=== PATIENT | male | born 1940 | race Asian ===

== ENCOUNTER 2024-06-05 15:00 | Outpatient (REF) | payer MEDICARE, SELFPAY ==
--- NOTE | 2024-06-06 09:08 | MHC.AU.HA1 ---
Hearing Aid Evaluation Date of Visit: 06/05/24 Historical Information: Description of Hearing: Right Ear: Mild sloping to severe sensorineural hearing loss; Left Ear: Mild sloping to severe sensorineural hearing loss Summary: Accompanied by daughter, Lakesha. Discussed possible third-constitution party administered benefit through [employer] insurance. Rosa and Lakesha opted to pursue hearing aids here, knowing it will be self-pay. Discussed pros and cons of different styles and technology levels in detail. Planning to trial rechargeable standard BTE. However, after discussion about importance of daily, consistent use and acclimatization period, Rosa reported he needs to think about it more and is not ready to pursue amplification. 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 He goes to restaurants occasionally but rarely socializes otherwise. Discussed impact of hearing loss on other cognitive processes and importance of auditory stimulation just by hearing sounds around the house even if not engaged in conversations. After lengthy consultation discussion, Rosa did not want to pursue hearing aids. Discussed PocketTalker as alternative option, christina'michaelle in office. Lakesha reported they will consider a PocketTalker and also now plan to look into insurance benefit. If they ultimately decide to pursue hearing aids here, they will reschedule the Hearing Aid Consultation to confirm details and take earmold impressions. Hearing Aid Prescription: Based on the individual?s shared listening needs, communication environments, dexterity, desire for connectivity, and personal preferences, the following prescription for amplification has been made: Right ear: Make, Model, Color: Phonak Zonia L30-SC Battery Size: Rechargeable Type of Earmold/Dome/CShell/SlimTip: MicroSonic M45 Half Shell Left ear: Left ear prescription to be same as Right Hearing Aid above: Make, Model, Color: Phonak Zonia L30-SC Battery Size: Rechargeable Type of Earmold/Dome/CShell/SlimTip: MicroSonic M45 Half Shell Accessories/Assistive Technology: Burlap Man Plan of Care: Patient is not interested in pursuing new amplification at this time. Action Taken/Action Needed: RTC PRN Primary Diagnosis: H90.3 Bilateral Sensorineural Hearing Loss Signature: Provider: Priyank Johnson, [facility]
== END 2024-06-05 15:01 | disposition home or self-care (01) ==
LOC: HO.SH 15:00
PROVIDERS: Visit Provider Family Medicine
DX: Z01.118 Encounter for examination of ears and hearing with other abnormal findings (principal); H90.3 Sensorineural hearing loss, bilateral
CPT/HCPCS: 92557

== ENCOUNTER 2024-06-24 09:49 | Outpatient (AMB) | payer MEDICARE, SELFPAY ==
[2024-06-24 09:51] VITALS: BP 110/64; PULSE 67; BMI 19.8
--- NOTE | 2024-06-24 09:51 | A.OFFVIS_ITS ---
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/ [place] Intake Note: New patient with Medtronic pacer moved from [place] feeling good Ash Worker Required: No Career Specialist: Career Specialist Present Accompanied by: Daughter Allergies olmesartan [From Benicar] Allergy (Severe, Verified 06/24/24 09:58) Vomiting Medication List - Last Reconciled 06/24/24 by Sundeep Girard MD amlodipine 5 mg PO DAILY apixaban (Eliquis) 2.5 mg PO BID atorvastatin 20 mg PO BEDTIME doxazosin 1 mg PO DAILY metformin 500 mg PO BID HPI Comments Details: Thank you for referring Rosa in cardiology consultation for management of his atrial fibrillation as well as pacemaker. He is accompanied by his daughter. Patient is a pleasant 83-year-old male says was diagnose with atrial fibrillation about 10 years ago. Initially started on warfarin but subsequently has stroke and was switch to Xarelto however this became very expensive and he had to go back to warfarin therapy again. However recently moved to [facility] and was started on Eliquis therapy which is tolerating well after change in his insurance. He said it is more affordable at this point time he has been taking. No side effects related to it. He said he has never had attempted cardioversion for his atrial fibrillation has remained in atrial fibrillation for many years. Underwent a pacemaker placement about 4 or 5 years ago for what appears to be episode of syncope with very low heart rate at that point time. Since then he has had no further syncopal episodes. He takes all his medications. Denies any symptoms exertional chest pain or shortness of breath. Denies any orthopnea, PND, leg edema. Denies any palpitations or chest pain. Denies any bleeding issues or neurologic events. [facility] Medical History HTN (hypertension) Cardiac pacemaker in situ Stroke Chronic atrial fibrillation Surgical History Hx of cardiac pacemaker Family History Father Diabetes Mother Diabetes Social History Patient Tobacco Use Status: Former Tobacco user Review of Systems Const Denies chills, Denies daytime sleepiness, Denies fatigue, Denies fever(s), Denies frequent falls, Denies poor appetite, Denies snoring, Denies stops breathing during sleep, Denies weakness, Denies weight gain and Denies weight loss Eyes Denies loss of vision ENT Denies dizziness and Denies hearing loss Card Denies chest pain, Denies claudication, Denies leg edema, Denies lightheadedness, Denies palpitations, Denies dyspnea, Denies dyspnea on exertion and Denies orthopnea Resp Denies cough, Denies excessive phlegm production, Denies dyspnea, Denies dyspnea on exertion, Denies snoring and Denies wheezing GI Denies abdominal pain, Denies hematochezia, Denies change in bowel habits, Denies nausea and Denies vomiting Denies dysuria and Denies urinary frequency Musc Denies arthralgias, Denies muscle weakness, Denies numbness and Denies other (frequent falls) Skin/Breast Denies nail changes and Denies rash Neuro Denies Abnormal speech present, Denies dizziness, Denies frequent falls, Denies loss of vision, Denies memory loss, Denies numbness and Denies weakness Psych Denies depression and Denies memory loss Endo Denies fatigue and Denies palpitations Misael/Lymph Reports easy bruising and Reports other (anemia) Aller/Immun Denies wheezing Physical Exam Vital Signs: Last Vital Signs Pulse 67 06/24/24 09:51 BP 110/64 06/24/24 09:51 BMI result Body Mass Index 19.8 Const General: cooperative, comfortable, no acute distress, alert and awake Nutritional Appearance: thin Orientation/consciousness: patient oriented x3 Limitations: no limitations HEENT Head: Yes normocephalic and Yes atraumatic Neck Neck: Yes trachea midline, Yes supple and Yes no JVD Resp Effort & Inspection: normal respiratory effort Auscultation: clear to auscultation bilaterally Cardio Jugular venous distension: no JVD Palpation: normal PMI Rate: regular rate Rhythm: regular rhythm Heart sounds: S1 normal heart sound present, S2 normal heart sound present, no click, no gallops, no murmurs and no rubs GI Auscultation: normal bowel sounds Skin General skin exam: no rashes or lesions noted Neuro General: patient oriented x3 and no focal motor deficits Speech: No Abnormal speech present Extrem General: Yes no clubbing, cyanosis or edema Office Procedures Cardiac Device Check Cardiac Device Check Details: Medtronic single-chamber pacemaker in place programmed in VVIR at 60 beats per minute. Ventricular pacing 100% of the time. Ventricular sensing is adequate. Ventricular pacing thresholds adequate. Battery life is at about 10 years 13898-[id number] Cardiac Device Check, leadless/single lead pacemaker Procedure code (CPT) selection complete EKG Details: EKG shows ventricular paced rhythm with underlying atrial fibrillation. [id number], Complete Assessment & Plan Assessment & Plan (1) Chronic atrial fibrillation: Code(s): I48.20 - Chronic atrial fibrillation, unspecified Category: Medical Plan: Chronic atrial fibrillation for about 10 years. Patient was asking whether he could have medicines to regularize his rhythm. I said that unlikely given that he has been in AFib for 10 years to pursue rhythm control approach as there is significant structural changes over time with persistent/chronic atrial fibrillation. Also he is currently not having any symptoms or signs of cardiac decompensation and utility of pursuing rhythm control approach and clinically benefits are low. This was discussed and she understands. Advised to continue low-dose Eliquis therapy at 2.5 mg b.i.d. given his weight and age. Continue monitor renal function every 3 months. Will obtain echocardiogram to assess for LV systolic function given constant RV pacing as well as biatrial chamber size and secondary valvular abnormalities. (2) Cardiac pacemaker in situ: Comment: Medtronic single-chamber pacemaker for bradycardia and possible syncope, 4 years ago Code(s): Z95.0 - Presence of cardiac pacemaker Category: Medical Plan: Cardiac pacemaker in-situ, working well. Single-chamber pacemaker patient ventricularly pacer dependent. Underlying rate at about 45 beats per minute. No symptoms related to it. Will follow remotely every 3 months. Follow up in the clinic in 6 months time. (3) HTN (hypertension): Code(s): I10 - Essential (primary) hypertension Category: Medical Plan: Hypertension which is currently well optimized advised to monitor blood pressure at home maintain a log. Goal blood pressure less than 130/84. Low-salt diet was discussed. Continue current therapy. Importance of good blood pressure control was discussed. Follow up in the clinic in 6 months time. Will obtain old records. Thank you for allowing me to partake in his care Orders: Orders CA echo transthoracic complete Today I48.20 - Chronic atrial fibrillation, unspecified Coding Level of Care Code New Pt Level 4 (80227) Diagnoses Chronic atrial fibrillation I48.20 Cardiac pacemaker in situ Z95.0 HTN (hypertension) I10 CPT Codes Cardiac Device Check - Cardiac Device 1: 46168-[id number] Cardiac Device Check, leadless/single lead pacemaker ([id number]) EKG - CPT: 53252-Wvnivmmcubwjvpyap, Complete ([id number])
== END 2024-06-24 10:35 | disposition home or self-care (01) ==
PROVIDERS: PCP Family Medicine; Visit Provider Internal Medicine Cardiovascular Disease
DX: I48.20 Chronic atrial fibrillation, unspecified (principal); Z95.0 Presence of cardiac pacemaker; I10 Essential (primary) hypertension; R94.31 Abnormal electrocardiogram [ECG] [EKG]
CPT/HCPCS: 93010; 93279; 99204

== ENCOUNTER → 2024-06-24 09:49 | Outpatient (BNVA) | payer MEDICARE, SELFPAY | PROVIDERS: Visit Provider Internal Medicine Cardiovascular Disease | DX: Z45.018 Encounter for adjustment and management of other part of cardiac pacemaker (principal); I48.20 Chronic atrial fibrillation, unspecified; I10 Essential (primary) hypertension | CPT/HCPCS: 93005; 99202 ==

== ENCOUNTER → 2024-07-07 23:59 | Outpatient (BNV) | payer MEDICARE, SELFPAY ==
--- NOTE | 2024-07-08 12:37 | MHC.OFFVIS ---
Intake Visit Reasons: Remote device check- Medtronic Allergies olmesartan [From Benicar] Allergy (Severe, Verified 06/24/24 09:58) Vomiting PFSH Medical History HTN (hypertension) Cardiac pacemaker in situ Stroke Chronic atrial fibrillation Surgical History Hx of cardiac pacemaker Family History Father Diabetes Mother Diabetes Social History Patient Tobacco Use Status: Former Tobacco user Office Procedures Cardiac Device Check Cardiac Device Check Details: Remote pacemaker report generated 07/07/2024. Pacemaker function is adequate [id number] Cardiac Device Interrogation, pacemaker Procedure code (CPT) selection complete Assessment & Plan Assessment & Plan (1) Cardiac pacemaker in situ: Comment: Medtronic single-chamber pacemaker for bradycardia and possible syncope, 4 years ago Code(s): Z95.0 - Presence of cardiac pacemaker Category: Medical Plan: See above Coding Level of Care Code Procedure Only Diagnoses Cardiac pacemaker in situ Z95.0 CPT Codes Cardiac Device Check - Cardiac Device 12: [id number] Cardiac Device Interrogation, pacemaker ([id number])
== END ==
PROVIDERS: PCP Family Medicine; Visit Provider Internal Medicine Cardiovascular Disease
DX: R00.1 Bradycardia, unspecified (principal); Z95.0 Presence of cardiac pacemaker
CPT/HCPCS: 93294

== ENCOUNTER 2024-07-22 11:10 | Outpatient (REF) | payer MEDICARE, SELFPAY ==
[2024-07-22 13:20] LABS: MANUAL DIFF FLAG NO
[2024-07-22 13:29] LABS: Basophils Percent Auto 0.3 % (0-2); Eosinophils Absolute Auto 0.1 X10*3/uL (0.0-0.4); Eosinophils Percent Auto 1.2 % (0-4); Hematocrit 46.7 % (42.0-52.0); Hemoglobin 15.5 g/dl (14.0-18.0); Imm Gran Abs Auto 0.02 X10*3/uL (0.00-0.03); Imm Gran Pct Auto 0.3 % (0.0-0.4); Lymphocytes Absolute Auto 1.4 X10*3/uL (1.2-4.9); Lymphocytes Percent Auto 23.8 % (20-40); Mean Corpuscular HGB Conc 33.2 g/dl (31.0-36.0); Mean Corpuscular Hemoglobin 32.4 pg (27.0-33.0); Mean Corpuscular Volume 97.7 fL (80.0-98.0); Mean Platelet Volume 9.5 fL (9.4-12.4); Monocytes Absolute Auto 0.5 X10*3/uL (0.1-1.2); Monocytes Percent Auto 8.5 % (2-11); Neutrophils Absolute Auto 3.9 x10*3/uL (2.0-8.3); Neutrophils Percent Auto 65.9 % (45-73); Platelet Count 210 X10*3/uL (160-400); Red Blood Count 4.78 X10*6/uL (4.60-5.80); Red Cell Distribution Width 13.7 % (11.0-16.0); White Blood Count 5.9 X10*3/uL (4.8-10.8)
[2024-07-22 13:50] LABS: Alanine Aminotransferase 16 U/L (0-40); Albumin Level 4.1 g/dL (3.5-5.0); Alkaline Phosphatase 48 U/L (39-117); Anion Gap 13 (12-20); Aspartate Amino Transferase 15 U/L (5-37); Bilirubin Total 1.2 mg/dL (0.0-1.0); Blood Urea Nitrogen 27 mg/dL (9-16); Calcium 9.6 mg/dL (8.4-10.2); Carbon Dioxide 27 mmol/L (22-29); Chloride 105 mmol/L (96-108); Estimated Glomerular Filt Rate > 60; Glucose Random 126 mg/dL (60-115); Potassium 4.3 mmol/L (3.3-5.1); Sodium 141 mmol/L (135-145); Total Protein 7.5 g/dL (6.5-8.0); Uric Acid 7.9 mg/dL (3.4-7.0)
[2024-07-22 13:59] LABS: Creatinine Urine 155.97 mg/dL; Microalbum/Creatinine Ratio Ur 19.2 ug/mg cr (<30)
== END 2024-07-22 11:11 | disposition home or self-care (01) ==
LOC: HO.HHCL 11:10
PROVIDERS: Visit Provider Family Medicine
DX: M10.9 Gout, unspecified (principal); E11.59 Type 2 diabetes mellitus with other circulatory complications; R63.6 Underweight
CPT/HCPCS: 36415; 80053; 82043; 82570; 84550; 85025

== ENCOUNTER → 2024-08-05 07:56 | Outpatient (REF) | payer MEDICARE, SELFPAY ==
--- NOTE | 2024-08-05 07:59 | CA_ITS ---
Transthoracic Echocardiogram Patient (Last, First, Middle): Rosa Rodríguez, Gender: Male Date of : 1940 Age: 83 Procedure Date: 08/05/2024 Procedure Type: Transthoracic Echocardiogram Location: OP Height: 172.72 cm Weight: 54.43 kg BSA: 1.65 m2 Heart Rate: bpm BP: 140 / 70 mmHg Leasing Representative: TO Referring MD: Sundeep Girard MD Symptoms: I48.20 - Chronic atrial fibrillation, unspecified Study Quality: Adequate ECG Rhythm: Atrial Fibrillation Conclusions: - The left ventricular systolic function is normal. The calculated ejection fraction is 60% by biplane method. - Severe biatrial enlargement. - By color Doppler, [id number] interatrial shunting suggestive of atrial septal defect. - There is mild aortic valve regurgitation. - There is mild tricuspid valve regurgitation. - There is mild dilatation of the ascending aorta measuring 4.20 cm. Findings Left Ventricle Normal left ventricular cavity size. The left ventricular systolic function is normal. The calculated ejection fraction is 60% by biplane method. There is no evidence of regional wall motion abnormalities. Diastolic function is indeterminate on the basis of available data. There is mild septal and mild basal asymmetric hypertrophy. Right Ventricle Normal right ventricular cavity size and systolic function. Atria Severe biatrial enlargement. By color Doppler, [id number] interatrial shunting suggestive of atrial septal defect. Aortic Valve There is a normal trileaflet aortic valve. There is mild calcification of the aortic valve. There is mild aortic valve regurgitation. Mitral Valve There is mild mitral annular calcification. There is trace mitral valve regurgitation. There is no mitral valve stenosis. Pulmonic Valve The pulmonic valve is likely normal. Tricuspid Valve Normal tricuspid valve structure. There is mild tricuspid valve regurgitation. There is no evidence of pulmonary hypertension. Great Vessels There is mild dilatation of the ascending aorta measuring 4.20 cm. Venous The inferior vena cava is normal in size and collapses greater than 50% with inspiration. Pericardium/Pleural There is no evidence of pericardial effusion. Prior Study Comparison No prior study available for comparison. Measurements 2D Linear Measurements IVSd: 1.02 0.6-0.9/0.6-1.0 cm LVIDd: 4.53 3.9-5.3/4.2-5.9 cm LVIDd Index: 2.75 2.4-3.2/2.2-3.1 cm/m2 LVIDs: 2.94 2.0-3.6 cm LVPWd: 0.84 0.7-1.1 cm LA Diam: 3.40 2.7-3.8/3.0-4.0 cm LAIDs Index: 2.06 1.5-2.3 cm/m2 LV Mass: 174.93 67-162/88-224 g LV Mass Index: 106.02 43-95/49-115 g/m2 LVOT Diam: 2.00 3.0+(-)1.3 cm 2D Systolic Function EF 4C: 62.00 >55% EF 2C: 57.40 >55% EF BiP: 59.70 >55% Mitral Valve MV Pk E: 1.10 MV Decel Time: 255.00 E'Lateral: 10.10 E'Medial: 7.29 E/E' Med: 15.10 E/E' Lat: 10.90 PHT: 75.00 MVA PHT: 2.93 Decel [place]: 4.31 Aortic Valve AoV Pk Christian: 1.76 AoV Mn Christian: 1.16 AoV VTI: 0.37 AoV Pk Grad: 12.00 Aov Mn Grad: 6.00 DUNG Cont.VTI: 2.40 AI Pk Christian: 3.64 AI [place]: 2.01 LVOT LVOT Pk Christian: 1.29 LVOT Mn Christian: 0.86 LVOT VTI: 0.28 LVOT Pk Grad: 7.00 LVOT Mn Grad: 3.00 LVOT Diam: 2.00 LVOT Area: 3.14 Diastolic Function MV Pk E: 1.10 E'Medial: 7.29 E/E' Med: 15.10 E' Laterial: 10.10 E/E' Lat: 10.90 Right Ventricle TAPSE (mm): 17.70 TVS' Christian: 11.60 Tricuspid Valve TR Pk Christian: 2.52 TR Pk Grad: 25.00 RA Press: 3.00 RVSP: 28.00 Great Vessels Aorta Sinus of Valsalva: 3.85 2.0-3.5 cm Ao Asc: 4.20 2.1-3.4 cm Updated in Other Vendor System with Status of Final Jesse Thomason MD electronically signed on 08/06/2024 8:24:56 AM with status of Final
== END ==
LOC: HO.CARD 07:56
PROVIDERS: PCP Family Medicine; Visit Provider Internal Medicine Cardiovascular Disease
DX: I48.20 Chronic atrial fibrillation, unspecified (principal)
CPT/HCPCS: 93306

== ENCOUNTER → 2024-08-05 07:59 | Outpatient (BNV) | payer MEDICARE, SELFPAY | PROVIDERS: PCP Family Medicine; Visit Provider Internal Medicine | DX: Q21.10 Atrial septal defect, unspecified (principal); I35.1 Nonrheumatic aortic (valve) insufficiency; I51.7 Cardiomegaly; I42.2 Other hypertrophic cardiomyopathy | CPT/HCPCS: 93303; 93320; 93325 ==

== ENCOUNTER → 2024-11-20 23:59 | Outpatient (BNV) | payer MEDICARE, SELFPAY ==
--- NOTE | 2024-11-24 16:40 | MHC.OFFVIS ---
Intake Visit Reasons: Remote device check- Medtronic Allergies olmesartan [From Benicar] Allergy (Severe, Verified 06/24/24 09:58) Vomiting PFSH Medical History HTN (hypertension) Cardiac pacemaker in situ Stroke Chronic atrial fibrillation Surgical History Hx of cardiac pacemaker Family History Father Diabetes Mother Diabetes Social History Patient Tobacco Use Status: Former Tobacco user Office Procedures Cardiac Device Check Cardiac Device Check Details: Remote pacemaker report generated 11/20/2024. 100% ventricular pacing noted. Pacemaker function is adequate [id number] Cardiac Device Interrogation, pacemaker Procedure code (CPT) selection complete Assessment & Plan Assessment & Plan (1) Cardiac pacemaker in situ: Comment: Medtronic single-chamber pacemaker for bradycardia and possible syncope, 4 years ago Code(s): Z95.0 - Presence of cardiac pacemaker Category: Medical Plan: See above Coding Level of Care Code Procedure Only Diagnoses Cardiac pacemaker in situ Z95.0 CPT Codes Cardiac Device Check - Cardiac Device 12: [id number] Cardiac Device Interrogation, pacemaker ([id number])
== END ==
PROVIDERS: PCP Family Medicine; Visit Provider Internal Medicine Cardiovascular Disease
DX: R00.1 Bradycardia, unspecified (principal); Z95.0 Presence of cardiac pacemaker
CPT/HCPCS: 93294

== ENCOUNTER 2024-12-25 08:48 | Outpatient (AMB) | payer MEDICARE, SELFPAY ==
--- NOTE | 2024-12-25 08:50 | MHC.OFFVIS ---
Vital Signs 12/25/24 08:56 Height 5 ft 5 in Weight 129 lb 13.636 oz BMI 21.6 BP 130/60 Blood Pressure Location Lt brachial Position Sitting Pulse 80 Pulse Source Pulse Oximeter Intake Visit Reasons: 6 mth f/up w/ pacer ck Intake Note: 6 mth f/up w/pacer check Manager Marketing Sales Required: No Accompanied by: Daughter Allergies olmesartan [From Benicar] Allergy (Severe, Verified 06/24/24 09:58) Vomiting Medication List - Last Reconciled 12/25/24 by Sundeep Girard MD amlodipine 5 mg PO DAILY apixaban (Eliquis) 2.5 mg PO BID atorvastatin 20 mg PO BEDTIME doxazosin 1 mg PO DAILY metformin 500 mg PO BID HPI Comments Details: Marylin comes for follow-up. He has been doing well from cardiac perspective. Remains active although not exercising due to cold weather. He does walk around the house. Denies any lightheadedness, syncope. No prolonged palpitation irregular heartbeat. No heart failure symptoms. Denies orthopnea, PND, leg edema. No exertional chest pain. No bleeding issues or neurologic events. [facility] Medical History HTN (hypertension) Cardiac pacemaker in situ Stroke Chronic atrial fibrillation Surgical History Hx of cardiac pacemaker Family History Father Diabetes Mother Diabetes Social History Patient Tobacco Use Status: Former Tobacco user Review of Systems Const Denies chills, Denies fatigue, Denies fever(s), Denies frequent falls, Denies weakness, Denies weight gain and Denies weight loss ENT Denies dizziness Card Denies chest pain, Denies leg edema, Denies lightheadedness, Denies palpitations, Denies dyspnea and Denies dyspnea on exertion Resp Denies cough, Denies dyspnea and Denies dyspnea on exertion GI Denies hematochezia Musc Denies abnormal gait, Denies muscle weakness, Denies numbness, Denies radiating pain into limb and Denies tingling Neuro Denies Abnormal speech present, Denies abnormal gait, Denies dizziness, Denies frequent falls, Denies numbness, Denies tingling and Denies weakness Endo Denies fatigue and Denies palpitations Physical Exam Vital Signs: BMI result Body Mass Index 21.6 Const General: cooperative, comfortable, no acute distress, alert and awake Nutritional Appearance: thin Orientation/consciousness: patient oriented x3 Limitations: no limitations Neck Neck: Yes trachea midline, Yes supple and Yes no JVD Resp Effort & Inspection: normal respiratory effort Auscultation: clear to auscultation bilaterally Cardio Jugular venous distension: no JVD Palpation: normal PMI Rate: regular rate Rhythm: regular rhythm Heart sounds: S1 normal heart sound present, S2 normal heart sound present, no click, no gallops, no murmurs and no rubs GI Auscultation: normal bowel sounds Skin General skin exam: no rashes or lesions noted Neuro General: patient oriented x3 and no focal motor deficits Speech: No Abnormal speech present Extrem General: Yes no clubbing, cyanosis or edema Office Procedures Cardiac Device Check Cardiac Device Check Details: Medtronic pacemaker in place programmed in VVIR at 60 beats per minute. Ventricular pacing 100% of the time. Ventricular sensing was adequate. Ventricular pacing thresholds adequate. Pacing lead impedance is stable. Battery life is about 10 years [id number] Cardiac Device Check, leadless/single lead pacemaker Procedure code (CPT) selection complete Assessment & Plan Assessment & Plan (1) Chronic atrial fibrillation: Code(s): I48.20 - Chronic atrial fibrillation, unspecified Category: Medical Plan: Chronic atrial fibrillation which is currently rate controlled on no rate lowering medications required. Patient was pacer dependent. Continue full oral anticoagulation, currently on Eliquis 2.5 mg b.i.d.. Continue rate control approach as he has no signs or symptoms of cardiac decompensation. (2) Ascending aorta dilatation: Code(s): I77.810 - Thoracic aortic ectasia Category: Medical Plan: Mild ascending aortic root dilatation. No interventions required. Continue aggressive blood pressure control, see below. (3) Cardiac pacemaker in situ: Comment: Medtronic single-chamber pacemaker for bradycardia and possible syncope, 4 years ago Code(s): Z95.0 - Presence of cardiac pacemaker Category: Medical Plan: Cardiac pacemaker in-situ, working well. Patient pacer dependent. Will continue monitor by pacer telemetry as well as in the clinic in 6 months. (4) HTN (hypertension): Code(s): I10 - Essential (primary) hypertension Category: Medical Plan: Hypertension which is currently well optimized. Increased pulse pressure most suggestive of calcified arterial tree. No interventions required. Continue amlodipine therapy. Advised to maintain adequate hydration. Follow up in the clinic in 6 months time, sooner p.r.n.. Thank you for allowing me partake in his care Orders: Orders Basic Metabolic Panel Today I48.20 - Chronic atrial fibrillation, unspecified Coding Level of Care Code Est Pt Level 4 (24697) Complex EM visit Add On G2211 Diagnoses Chronic atrial fibrillation I48.20 Ascending aorta dilatation I77.810 Cardiac pacemaker in situ Z95.0 HTN (hypertension) I10 CPT Codes Cardiac Device Check - Cardiac Device 1: [id number] Cardiac Device Check, leadless/single lead pacemaker ([id number])
[2024-12-25 08:56] VITALS: BP 130/60; PULSE 80; BMI 21.6
--- OUTSIDE RECORDS SUMMARY | 2024-12-25 11:36 | XMS_ITS | Encounter Summary ---
Author Organization [employer] Address [address] [place] [address] Care Team Providers Care Sole Conditioner Name Role Phone Bia Burciaga MD Primary Care Provider [phone] Encounter Details Date Type Department Care Team (Late st Contact Info) Description 07/29/2024 Orders Only [facility] [address] [place], [place] [phone] Bia Burciaga MD [address] [place], [place] [phone] Social History Tobacco Use Types Packs/Day Years Used Date Smoking Tobacco: Former Cigarettes Q uit: 04/17/1994 Smokeless Tobacco: Never Depression Answer Date Recorded Patient Health Questionnaire-9 Score 0 04/17/2024 Patient Health Questionnaire-9 Score 0 04/17/2024 Last PHQ-9: Questionnaire Data Not on file 0 04/17/2024 Housing Stability Answer Date Recorded What is your housing situation today? I have stevesilvio ralph 04/17/[address] you li ve. Do you have problems with any of the following? None of the above 04/17/2024 Food Insecurity Answer Date Recorded Within the past 12 months, y ou worried that your food would run out before you got money to buy more: Never True 04/17/2024 Within the past 12 months,th e food you bought just didn't last and you didn't have enough money to get more: Never True Transportation Answer Date Recorded In the past 12 months, has l ack of transportation kept you from medical appts, meetings, work or from getting things needed for daily living? No 04/17/2024 Utilities Answer Date Recorded In the past 12 months, has t he electric, gas, oil or water company threatened to shut off services in your home? No 04/17/2024 Depression Answer Date Recorded Patient Health Questionnaire-2 Score 0 04/17/2024 Sex and Gender Information Value Date Recorded Sex Assigned at Male 03/25/2024 4:56 PM EDT Legal Sex Male 4:56 PM EDT Gender Identity Male 04/17/2024 9:25 AM EDT Sexual Orientation Straight 04/17/2024 9: 25 AM EDT documented as of this encounter Plan of Treatment Not on file documented as of this encounter Visit Diagnoses Not on filedocumented in this encounter Additional Health Concerns Assessment Noted Time PHQ-9 Depression Total Score: 0 04/17/20 9:44 AM EDT documented as of this encounter Care Teams Sole Conditioner Relationship Specialty Start Date End Date Bia Burciaga MD [address] [place] [phone] PCP - General Family Medicine 04/17/24 documented as of this encounter
--- OUTSIDE RECORDS SUMMARY | 2024-12-25 11:36 | XMS_ITS | Encounter Summary ---
Author Organization [employer] Address [address] [place] [address] 7t [place] [address] Care Team Providers Care Nickel Operator Name Role Phone Bia Burciaga MD Primary Care Provider [phone] Reason for Referral * Consultation (Urgent) - Canceled Specialty Diagnoses / Procedures Referred By Rashida barajas Referred To Contact Cardiology Diagnoses Presence of cardiac pacemaker Bia Burciaga MD [address] [place] [address] Phone: tel: fax: Referral ID Status Reason Start Date Expiration Date Visits Requested Visits Authorized [id number] Canceled Specialty Services Required 03/27/2024 03/27/2025 1 1 Encounter Details Date Type Department Care Team (Late st Contact Info) Description 03/27/2024 Orders Only [facility] MEDICINE [address] [place], [place] [phone] Bia Burciaga MD [address] [place], [place] [phone] Presence of cardiac pacemaker (Primary Dx) Social History Tobacco Use Types Packs/Day Years Used Date Smoking Tobacco: Never Assessed Sex and Gender Information Value Date Recorded Sex Assigned at Male 03/25/2024 4:56 PM EDT Legal Sex Male 4:56 PM EDT Gender Identity Male 04/17/2024 9:25 AM EDT Sexual Orientation Straight 04/17/2024 9: 25 AM EDT documented as of this encounter Plan of Treatment Scheduled Referrals Name Type Priority Associated Diagnoses Order Schedule Referral to Cardiology Outpatient Referral Urgent Presence of cardiac pacemaker Expected: 03/27/2024 (Approximate), Expires: 03/27/2025 documented as of this encounter Visit Diagnoses Diagnosis Presence of cardiac pacemaker- Primary Cardiac pacemaker in situ documented in this encounter Care Teams Nickel Operator Relationship Specialty Start Date End Date Bia Bruciaga MD [address] [place] [address] PCP - General Family Medicine 04/17/24 documented as of this encounter
--- OUTSIDE RECORDS SUMMARY | 2024-12-25 11:36 | XMS_ITS | Encounter Summary ---
Author Organization [employer] Address [address] [facility] 7t [place] [address] Care Team Providers Care Laundry Housekeeper Name Role Phone Bia Burciaga MD Primary Care Provider [phone] Encounter Details Date Type Department Care Team (Late st Contact Info) Description 03/28/2024 Telephone [facility] MED[facility]INE [address] [place], [place] [phone] Wagner Kelly MD [address] [place] [address] [phone] Social History Tobacco Use Types Packs/Day Years [...] Diagnoses Not on filedocumented in this encounter Care Teams Laundry Housekeeper Relationship Specialty Start Date End Date Bia Burciaga MD [address] [place] [address] [phone] PCP - General Family Medicine 04/17/24 documented as of this encounter
--- OUTSIDE RECORDS SUMMARY | 2024-12-25 11:37 | XMS_ITS | Clinical Summary ---
Author Organization [employer] Address [address] [facility] 7t [place] [address] Care Team Providers Care Clinical Data Abstractor Name Role Phone Bia Burciaga MD Primary Care Provider [phone] Allergies No known active allergies Medications atorvastatin (Lipitor) 20 MG tablet Take 1 tablet (20 mg) by mouth Once per day. 90 tablet 3 03/28/2024 03/28/20 25 Active amLODIPine (Norvasc) 5 MG tablet Take 1 tablet (5 mg) by mouth Once per day. 90 tablet 3 03/28/2024 03/28/20 25 Active metFORMIN, OSM, (Fortamet) 500 MG 24 hr tablet Take 2 tablets (1,000 mg) by mouth Once per day. Do not crush, chew, or split. 180 tablet 3 03/28/2024 03/28/20 25 Active doxazosin (Cardura) 1 MG tablet Take 1 tablet (1 mg) by mouth at bedtime. 90 tablet 3 03/31/2024 03/31/20 25 Active apixaban (Eliquis) 2.5 MG tablet Take 1 tablet (2.5 mg) by mouth 2 times daily. 180 tablet 3 04/01/2024 Active Blood Pressure Monitor [facility] Check BP daily 1 each 04/18/2024 Active acetaminophen (Tylenol Extra Strength) 500 MG tablet Take 2 tablets (1,000 mg) by mouth every 8 (eight) hours if needed for mild pain or moderate pain. 90 tablet 1 07/29/2024 Active Active Problems Problem Noted Date Diagnosed Date Mild protein-calorie malnutrition 04/18/2024 Assessment & Plan (07/24/2024 10:32 AM EDT): - will prescribe nutritional supplement Assessment & Plan (04/22/2024 11:12 AM EDT): - will prescribe nutritional supplement Underweight 04/18/2024 Assessment & Plan (07/24/2024 10:32 AM EDT): - encouraged adequate nutritional intake Assessment & Plan (04/22/2024 11:11 AM EDT): - encouraged adequate nutritional intake Hearing loss 04/18/2024 Assessment & Plan (07/25/2024 6:54 AM EDT): - evaluated by director instructional material in May 2024 - patient was recommended to use hearing aids but was not ready to pursue amplification Cataract 04/18/2024 Assessment & Plan (07/25/2024 6:52 AM EDT): - Following with [facility], seen on 05/08/24. DM2 (diabetes mellitus, type 2) 04/16/2024 Assessment & Plan (07/24/2024 1:09 PM EDT): A1C 6.4% on 04/17/24 Continue metformin 1000 mg once daily; patient prefers to take 2 tablets in the morning daily to previous 500 mg bid. His daughter would like to lower dose of metformin or discontinue if possible. We agreed to try decreasing if his next A1C improves. Continue working on lifestyle modifications Last eye exam: 05/08/24 Last foot exam: 04/17/24. Onychomycosis. Last microalbumin test: 07/22/24, UACR 19.2 Last lipid profile on 01/17/24 by residential gas heat technician in [place] Last dental exam Assessment & Plan (04/22/2024 11:15 AM EDT): A1C 6.4% on 04/17/24 Continue metformin 1000 mg once daily; patient prefers to take 2 tablets in the morning daily to previous 500 mg bid Continue working on lifestyle modifications Last eye exam: Will refer Last foot exam: 04/17/24. Onychomycosis. Last microalbumin test: Last lipid profile on 01/17/24 by residential gas heat technician in [place] Last dental exam HTN (hypertension) 04/16/2024 Assessment & Plan (07/24/2024 10:30 AM EDT): -Goal BP < 140/90 per JNC-8 and < 130/80 per ACC/AHA guideline (Treatment threshold >=130/80) -BP elevated today -Recommended self-monitoring BP. -Continue working on lifestyle modifications -Continue current medications: amlodipine 5 mg daily; doxazosin 1 mg daily -Treatment Hx: previously on beta-hermelinda, likely discontinued due to bradycardia Assessment & Plan (04/22/2024 11:04 AM EDT): -Goal BP < 140/90 per JNC-8 and < 130/80 per ACC/AHA guideline (Treatment threshold >=130/80) -BP elevated today -Recommended self-monitoring BP. -Continue working on lifestyle modifications -Continue current medications: amlodipine 5 mg daily; doxazosin 1 mg daily -Treatment Hx: previously on beta-hermelinda, likely discontinued due to bradycardia Atrial fibrillation, chronic 04/16/2024 Assessment & Plan (07/24/2024 1:07 PM EDT): -pacemaker in situ -Accounts Receivable Associate: Robin, seen on 06/24/24 -Rate control: no longer on BB -Rhythm control: none -Anticoagulation: previously on Xarelto, likely swithing to apixaban -Last Holter monitor: in [place] -Last transthoracic echocardiogram: Unknown -Continue current management Assessment & Plan (04/22/2024 11:11 AM EDT): [id number] Score: 6 -pacemaker in situ -Accounts Receivable Associate: Referred; previously residential gas heat technician in [place] -Rate control: no longer on BB -Rhythm control: none -Anticoagulation: previously on Xarelto, likely swithing to apixaban -Last Holter monitor: in [place] -Last transthoracic echocardiogram: Unknown -Continue current management Complete heart block 04/16/2024 Assessment & Plan (07/24/2024 1:08 PM EDT): - s/p pacemaker placement in winter 2022 - last pacemaker check on 07/08/24 Assessment & Plan (04/22/2024 11:05 AM EDT): - s/p pacemaker placement in winter 2021 - refer to residential gas heat technician to arrange device interrogation Cardiac pacemaker 04/16/2024 Assessment & Plan (07/25/2024 6:51 AM EDT): - Hx complete heart block, atrial fibrillation - s/p pacemaker placement in winter 2021 in [place] - Following with [facility] Cardiology - Last device check in Jun 2024 Assessment & Plan (04/22/2024 11:06 AM EDT): - Hx complete heart block, atrial fibrillation - Refer to residential gas heat technician History of stroke 04/16/2024 Assessment & Plan (07/25/2024 6:55 AM EDT): - Continue risk factor management / effort for secondary prevention - Continue anticoagulation, previously Xarelto, switched to apixaban in March 2024. Assessment & Plan (04/22/2024 11:17 AM EDT): - Continue risk factor management / effort for secondary prevention - Continue anticoagulation, previously Xarelto, swithinc to apixaban. Gout 04/16/2024 Assessment & Plan (07/25/2024 6:54 AM EDT): - Uric acid: 7.9, discussed about allopurinol to lower uric acid. Due to potential side effects, we agreed to improve his diet and recheck uric acid in 4 months - Check HLA B* 5801 testing - Consider SGLT-2 inhibitor Assessment & Plan (04/22/2024 11:17 AM EDT): Check uric acid Consider SGLT-2 inhibitor Encounters Date Type Department Care Team Description 12/25/2024 Orders Only GENERIC EXTERNAL DATA DEPARTMENT Provider, Generic External Data 11/05/2024 Telephone [facility] MEDICINE [address] [place] [address] Roseanna Rodriguez [place] november recall from Last 3 Months Immunizations Name Administration Dates Next Due Pneumococcal Conjugate PCV 20 07/24/2024 Tdap 07/24/2024 Social History Tobacco Use Types Packs/Day Years Used Date Smoking Tobacco: Former Cigarettes Q uit: 04/17/1994 Smokeless Tobacco: Never Tobacco Cessation:Counseling Given: Not Answered Depression Answer Date Recorded Patient Health Questionnaire-9 Score 0 04/17/2024 Patient Health Questionnaire-9 Score 0 04/17/2024 Last PHQ-9: Questionnaire Data Not on file 0 04/17/2024 Housing Stability Answer Date Recorded What is your housing situation today? I have steve ralph 04/17/[address] you [...] Orientation Straight 04/17/2024 9: 25 AM EDT Last Filed Vital Signs Vital Sign Reading Time Taken Comments Blood Pressure 144/72 07/24/2024 10:04 AM EDT Pulse 84 07/24/2024 10:04 AM EDT Temperature 36.2 ??C (97.1 ??F) 07/24/2024 10:04 AM E DT Respiratory Rate 14 07/24/2024 10:04 AM EDT Oxygen Saturation 98% 07/24/2024 10:04 AM EDT Inhaled Oxygen Concentration - - Weight 55.2 kg (121 lb 9.6 oz) 07/24/2024 10:04 AM EDT Height 168.2 cm (5' 6.23 ) 04/17/2024 9:42 AM ED T Body Mass Index 19.49 04/17/2024 9:42 AM EDT Plan of Treatment Health Maintenance Due Date Last Done Comments Eye Exam 1950 Alcohol/Substance Use Screening 1951 Zoster Vaccines (1 of 2) 1989 RSV Patients and Patients Aged 60 years or older (1 - 1-dose 75+ series) 2014 COVID-19 Vaccine (2023- season) 2024 Influenza Vaccine (#1) 2024 Diabetes: Hemoglobin A1C 10/18/2024 04/17/2024 Lipid Panel 01/17/2025 01/17/2024 Depression Screening 04/17/2025 04/17/2024, 04/17/20 Diabetes: Foot Exam 04/17/2025 04/17/2024, 04/17/2024, 04/17/2024, Additional history exists SDOH Screening 04/17/2025 04/17/2024 Diabetes: Urine Protein Screening 07/22/2025 07/22/2024 Tobacco Screening 07/24/2025 07/24/2024 DTaP/Tdap/Td Vaccines (2 - Td or Tdap) 07/24/2034 07/24/2024 Pneumococcal Vaccine: 50+ Years Completed 07/24/2024 HIB Vaccines Aged Out No longer eligi ble based on patient's age to complete this topic HPV Vaccines Aged Out No longer eligi ble based on patient's age to complete this topic Hepatitis A Vaccines Aged Out No long er eligible based on patient's age to complete this topic Hepatitis B Vaccines Aged Out No long er eligible based on patient's age to complete this topic IPV Vaccines Aged Out No longer eligi ble based on patient's age to complete this topic Meningococcal Vaccine Aged Out No clint radha eligible based on patient's age to complete this topic RSV under 20 months Aged Out No longe r eligible based on patient's age to complete this topic Rotavirus Vaccines Aged Out No longer eligible based on patient's age to complete this topic Procedures Procedure Name Priority Date/Time Associated Diagnosis Comments BASIC METABOLIC PANEL Routine 12/25/2024 9:38 AM EST ALBUMIN, RANDOM URINE W/CREATININE Routine 07/22/2024 1:08 PM EDT Type 2 diabetes mellitus with other circulatory complication, without long-term current use of insulin ([facility]) POCT GLYCOSYLATED HEMOGLOBIN (HGB A1C) Routine 04/17/2024 9:45 AM EDT Type 2 diabetes mellitus with other circulatory complication, without long-term current use of insulin ([facility]) from Last 3 Months or Most Recently Relevant to Health Maintenance Results * (ABNORMAL) Basic Metabolic Panel (12/25/2024 9:38 AM EST) Sodium 141 135 - 145 mmol/L [facility] Potassium 5.3(H) 3.3 - 5.1 mmol/L [facility] Comment:Mild Hemolysis.Inter pret result with caution Chloride 105 96 - 108 mmol/L [facility] Carbon Dioxide 26 22 - 29 mmol/L [facility] Anion Gap 15 12 - 20 [facility] Urea Nitrogen (BUN) 23(H) 9 - 16 mg/dL [facility] Creatinine, Serum 1.08 0.5 - 1.4 mg/dL [facility] Estimated Glomerular Filt Rate >60 [facility] Comment:Chronic Kidney Disea se: Estimated GFR < 60 mL/min/1.54p3Hvsuio Kidney Disease: Estimated GFR < 15 mL/min/1.73m2 Glucose 220(H) 60 - 115 mg/dL [facility] Calcium 9.6 8.4 - 10.2 mg/dL [facility] 12/25/2024 9:38 AM EST 12/25/2024 9:38 AM EST us Generic External Data Provider LAB BLOOD ORDERAB LES Final Result [facility] [address] [place] [phone] * Albumin, Random Urine W/Creatinine (07/22/2024 1:08 PM EDT) Creatinine, Urine 155.97 mg/dL [facility] Microalbumin Urine 30.0 mg/L [facility] Microalbum Creatinine Ratio Ur 19.2 <30 ug/mg cr [facility] Comment:Albumin/Creatinine R atio Reference Ranges: Normal: < 30 ug/mg creatinine Microalbuminuria: 30 - 300 ug/mg creatinineClinical Albuminuria: > 300 ug/mg creatinine Urine 07/22/2024 1:08 PM EDT 07/22/2024 1:14 PM EDT Bia Burciaga MD LAB URINE ORDERABLES Final Resul t Performing Organization Address City/State/[facility] Co de Phone Number [facility] [address] [place] [phone] * (ABNORMAL) POCT glycosylated hemoglobin (Hgb A1c) (04/17/2024 9:45 AM EDT) Hemoglobin A1C 6.4(A) 4.0 - 6.0 % QC Media Lot # [id number] Lot# Expiration Date [id number] Blood Capillary blood specimen / Unknown 04/17/2024 9:45 AM EDT Bia Burciaga MD POINT OF CARE TEST ENTER/EDIT OR DERABLES Final Result from Last 3 Months or Most Recently Relevant to Health Maintenance Insurance MEDICARE [facility] MEDEX CARE Care Teams Clinical Data Abstractor Relationship Specialty Start Date End Date Bia Burciaga MD [address] [place] [phone] PCP - General Family Medicine 04/17/24
--- OUTSIDE RECORDS SUMMARY | 2024-12-25 11:37 | XMS_ITS | Encounter Summary ---
Author Organization [employer] Address [address] [facility] 7t [place] [address] Care Team Providers Care Health Information Technician Name Role Phone Bia Burciaga MD Primary Care Provider [phone] Encounter Details Date Type Department Care Team (Late st Contact Info) Description 03/31/2024 Orders Only [facility] MEDICINE [address] [place] [address] [phone] Bia Burciaga MD [address] [place] [address] [phone] Social History Tobacco Use Types Packs/Day Years [...] on filedocumented in this encounter Care Teams Health Information Technician Relationship Specialty Start Date End Date Bia Burciaga MD [address] [place] [address] [phone] PCP - General Family Medicine 04/17/24 documented as of this encounter
== END 2024-12-25 09:11 | disposition home or self-care (01) ==
PROVIDERS: PCP Family Medicine; Visit Provider Internal Medicine Cardiovascular Disease
DX: I48.20 Chronic atrial fibrillation, unspecified (principal); I77.810 Thoracic aortic ectasia; Z95.0 Presence of cardiac pacemaker; I10 Essential (primary) hypertension
CPT/HCPCS: 93279; 99214; G2211

== ENCOUNTER 2024-12-25 08:48 | Outpatient (REF) | payer MEDICARE, SELFPAY ==
[2024-12-25 11:26] LABS: Anion Gap 15 (12-20); Blood Urea Nitrogen 23 mg/dL (9-16); Calcium 9.6 mg/dL (8.4-10.2); Carbon Dioxide 26 mmol/L (22-29); Chloride 105 mmol/L (96-108); Estimated Glomerular Filt Rate > 60; Glucose Random 220 mg/dL (60-115); Potassium 5.3 mmol/L (3.3-5.1); Sodium 141 mmol/L (135-145)
--- OUTSIDE RECORDS SUMMARY | 2024-12-25 12:28 | XMS_ITS | Encounter Summary ---
Author Organization [employer] Address [address] [facility] 7t [place] [address] Care Team Providers Care Senior Technical Specialist Name Role Phone Bia Burciaga MD Primary Care Provider [phone] Encounter Details Date Type Department Care Team (Late st Contact Info) Description 03/31/2024 Orders Only [facility] MEDICINE [address] [place] [address] [phone] Bia Burciaga MD [address] [place] [address] [phone] Social History Tobacco Use Types Packs/Day Years [...] on filedocumented in this encounter Care Teams Senior Technical Specialist Relationship Specialty Start Date End Date Bia Burciaga MD [address] [place] [address] [phone] PCP - General Family Medicine 04/17/24 documented as of this encounter
--- OUTSIDE RECORDS SUMMARY | 2024-12-25 12:28 | XMS_ITS | Encounter Summary ---
Author Organization [employer] Address [address] [place] [address] 7[address] [place] [address] Care Team Providers Care Geriatric Care Manager Name Role Phone Bia Burciaga MD Primary Care Provider [phone] Reason for Referral * Consultation (Urgent) - Canceled Specialty Diagnoses / Procedures Referred By Rashida barajas Referred To Contact Cardiology Diagnoses Presence of cardiac pacemaker Bia Burciaga MD [address] [place] [address] Phone: tel: fax: Referral ID Status Reason Start Date Expiration Date Visits Requested Visits Authorized [id number] Canceled Specialty Services Required 03/27/2024 03/27/2025 1 1 Encounter Details Date Type Department Care Team (Late st Contact Info) Description 03/27/2024 Orders Only [facility] MEDICINE [address] [place], [place] [phone] Bia Burciaga MD [address] [place], [place] [phone] Presence of cardiac pacemaker (Primary Dx) Social [...] situ documented in this encounter Care Teams Geriatric Care Manager Relationship Specialty Start Date End Date Bia Burciaga MD [address] [place] [address] PCP - General Family Medicine 04/17/24 documented as of this encounter
--- OUTSIDE RECORDS SUMMARY | 2024-12-25 12:28 | XMS_ITS | Encounter Summary ---
Author Organization [employer] Address [address] [facility] 7t [place] [address] Care Team Providers Care Machine Stemmer Name Role Phone Bia Burciaga MD Primary Care Provider [phone] Encounter Details Date Type Department Care Team (Late st Contact Info) Description 07/29/2024 Orders Only [facility] MEDICINE [address] [place], [place] [phone] Bia Burciaga MD [address] [place], [place] [phone] Social History Tobacco Use Types Packs/Day Years [...] documented as of this encounter Care Teams Machine Stemmer Relationship Specialty Start Date End Date Bia Burciaga MD [address] [place] [phone] PCP - General Family Medicine 04/17/24 documented as of this encounter
--- OUTSIDE RECORDS SUMMARY | 2024-12-25 12:28 | XMS_ITS | Clinical Summary ---
Author Organization [employer] Address [address] [facility] [address] [place] [address] Care Team Providers Care Juvenile Correctional Officer Name Role Phone Bia Burciaga MD Primary Care Provider [phone] Allergies No known active allergies Medications atorvastatin [...] tablet 3 04/01/2024 Active Blood Pressure Monitor [facility] Check BP daily 1 each 04/18/2024 Active [...] (07/25/2024 6:54 AM EDT): - evaluated by science analyst in May 2024 - patient was recommended to use hearing aids but was not ready to pursue amplification Cataract 04/18/2024 Assessment & Plan (07/25/2024 6:52 AM EDT): - Following with [facility], seen on 05/08/24. DM2 [...] 19.2 Last lipid profile on 01/17/24 by employee communications specialist in [place] Last dental exam Assessment & Plan (04/22/2024 11:15 AM EDT): A1C 6.4% on 04/17/24 Continue metformin 1000 mg once daily; patient prefers to take 2 tablets in the morning daily to previous 500 mg bid Continue working on lifestyle modifications Last eye exam: Will refer Last foot exam: 04/17/24. Onychomycosis. Last microalbumin test: Last lipid profile on 01/17/24 by employee communications specialist in [place] Last dental exam HTN (hypertension) 04/16/2024 Assessment [...] (07/24/2024 1:07 PM EDT): -pacemaker in situ -Chart Calculator: Robin, seen on 06/24/24 -Rate control: no longer on BB -Rhythm control: none -Anticoagulation: previously on Xarelto, likely swithing to apixaban -Last Holter monitor: in [place] -Last transthoracic echocardiogram: Unknown -Continue current management Assessment & Plan (04/22/2024 11:11 AM EDT): [id number] Score: 6 -pacemaker in situ -Chart Calculator: Referred; previously employee communications specialist in [place] -Rate control: no longer on BB -Rhythm control: none -Anticoagulation: previously on Xarelto, likely swithing to apixaban -Last Holter monitor: in [place] -Last transthoracic echocardiogram: Unknown -Continue current management Complete heart block 04/16/2024 Assessment & Plan (07/24/2024 1:08 PM EDT): - s/p pacemaker placement in winter 2022 - last pacemaker check on 07/08/24 Assessment & Plan (04/22/2024 11:05 AM EDT): - s/p pacemaker placement in winter 2021 - refer to employee communications specialist to arrange device interrogation Cardiac pacemaker 04/16/2024 Assessment & Plan (07/25/2024 6:51 AM EDT): - Hx complete heart block, atrial fibrillation - s/p pacemaker placement in winter 2021 in [place] - Following with [facility] - Last device check in Jun 2024 Assessment & Plan (04/22/2024 11:06 AM EDT): - Hx complete heart block, atrial fibrillation - Refer to employee communications specialist History of stroke 04/16/2024 Assessment & Plan [...] DEPARTMENT Provider, Generic External Data 11/05/2024 Telephone [facility] [address] [place] [address] Roseanan Rodriguez MA november recall from Last 3 [...] complication, without long-term current use of insulin ([facility]) POCT GLYCOSYLATED HEMOGLOBIN (HGB A1C) Routine 04/17/2024 9:45 AM EDT Type 2 diabetes mellitus with other circulatory complication, without long-term current use of insulin ([facility]) from Last 3 Months or Most Recently Relevant to Health Maintenance Results * (ABNORMAL) Basic Metabolic Panel (12/25/2024 9:38 AM EST) Sodium 141 135 - 145 mmol/L [facility] Potassium 5.3(H) 3.3 - 5.1 mmol/L [facility] Comment:Mild Hemolysis.Inter pret result with caution Chloride 105 96 - 108 mmol/L [facility] Carbon Dioxide 26 22 - 29 mmol/L [facility] Anion Gap 15 12 - 20 [facility] Urea Nitrogen (BUN) 23(H) 9 - 16 mg/dL [facility] Creatinine, Serum 1.08 0.5 - 1.4 mg/dL [facility] Estimated Glomerular Filt Rate >60 [facility] Comment:Chronic Kidney Disea se: Estimated GFR < 60 mL/min/1.70s6Gbsatl Kidney Disease: Estimated GFR < 15 mL/min/1.73m2 Glucose 220(H) 60 - 115 mg/dL [facility] Calcium 9.6 8.4 - 10.2 mg/dL [facility] 12/25/2024 9:38 AM EST 12/25/2024 9:38 AM EST us Generic External Data Provider LAB BLOOD ORDERAB LES Final Result [facility] [address] [place] [phone] * Albumin, Random Urine W/Creatinine (07/22/2024 1:08 PM EDT) Creatinine, Urine 155.97 mg/dL [facility] Microalbumin Urine 30.0 mg/L [facility] Microalbum Creatinine Ratio Ur 19.2 <30 ug/mg cr [facility] Comment:Albumin/Creatinine R atio Reference Ranges: Normal: < 30 ug/mg creatinine Microalbuminuria: 30 - 300 ug/mg creatinineClinical Albuminuria: > 300 ug/mg creatinine Urine 07/22/2024 1:08 PM EDT 07/22/2024 1:14 PM EDT Bia Burciaga MD LAB URINE ORDERABLES Final Resul t Performing Organization Address City/State/[facility] Co de Phone Number [facility] [address] [place] [phone] * (ABNORMAL) POCT glycosylated hemoglobin (Hgb A1c) (04/17/2024 9:45 AM EDT) Hemoglobin A1C 6.4(A) 4.0 - 6.0 % QC Media Lot # [id number] Lot# Expiration Date [id number] Blood Capillary blood specimen / Unknown 04/17/2024 9:45 AM EDT Bia Burciaga MD POINT OF CARE TEST ENTER/EDIT OR DERABLES Final Result from Last 3 Months or Most Recently Relevant to Health Maintenance Insurance MEDICARE [facility] Care Teams Juvenile Correctional Officer Relationship Specialty Start Date End Date Bia Burciaga MD [address] [place] [phone] PCP - General Family Medicine 04/17/24
--- OUTSIDE RECORDS SUMMARY | 2024-12-25 12:28 | XMS_ITS | Encounter Summary ---
Author Organization [employer] Address [address] [facility] [address] [place] [address] Care Team Providers Care Rn Manager Name Role Phone Bia Burciaga MD Primary Care Provider [phone] Encounter Details Date Type Department Care Team (Late st Contact Info) Description 03/28/2024 Telephone [facility] [address] [place], [place] [phone] Wagner Kelly MD [address] [place] [address] [phone] Social History Tobacco Use Types Packs/Day Years [...] on filedocumented in this encounter Care Teams Rn Manager Relationship Specialty Start Date End Date Bia Burciaga MD [address] [place] [address] [phone] PCP - General Family Medicine 04/17/24 documented as of this encounter
== END 2024-12-25 08:49 | disposition home or self-care (01) ==
LOC: HO.LAB 08:48
PROVIDERS: PCP Family Medicine; Visit Provider Internal Medicine Cardiovascular Disease
DX: I48.20 Chronic atrial fibrillation, unspecified (principal); I77.810 Thoracic aortic ectasia; I10 Essential (primary) hypertension; Z45.018 Encounter for adjustment and management of other part of cardiac pacemaker; Z79.01 Long term (current) use of anticoagulants; Z79.899 Other long term (current) drug therapy
CPT/HCPCS: 36415; 80048; 99212

== ENCOUNTER → 2025-02-19 23:59 | Outpatient (BNV) | payer MEDICARE, SELFPAY ==
--- NOTE | 2025-02-25 13:13 | MHC.OFFVIS ---
Intake Visit Reasons: Remote device check- Medtronic Allergies olmesartan [From Benicar] Allergy (Severe, Verified 06/24/24 09:58) Vomiting PFSH Medical History HTN (hypertension) Cardiac pacemaker in situ Stroke Chronic atrial fibrillation Surgical History Hx of cardiac pacemaker Family History Father Diabetes Mother Diabetes Social History Patient Tobacco Use Status: Former Tobacco user Office Procedures Cardiac Device Check Cardiac Device Check Details: Remote pacemaker report generated 02/19/2025. Pacemaker function is adequate [id number] Cardiac Device Interrogation, pacemaker Procedure code (CPT) selection complete Assessment & Plan Assessment & Plan (1) Cardiac pacemaker in situ: Comment: Medtronic single-chamber pacemaker for bradycardia and possible syncope, 4 years ago Code(s): Z95.0 - Presence of cardiac pacemaker Category: Medical Plan: See above Coding Level of Care Code Procedure Only Diagnoses Cardiac pacemaker in situ Z95.0 CPT Codes Cardiac Device Check - Cardiac Device 12: [id number] Cardiac Device Interrogation, pacemaker ([id number])
== END ==
PROVIDERS: PCP Family Medicine; Visit Provider Internal Medicine Cardiovascular Disease
DX: R00.1 Bradycardia, unspecified (principal); Z95.0 Presence of cardiac pacemaker
CPT/HCPCS: 93294

== ENCOUNTER → 2025-05-20 23:59 | Outpatient (BNV) | payer MEDICARE, SELFPAY ==
--- NOTE | 2025-05-25 11:56 | MHC.OFFVIS ---
Intake Visit Reasons: Remote device check- Medtronic Allergies olmesartan (From Benicar) Allergy (Severe, Verified 06/24/24 09:58) Vomiting PFSH Medical History HTN (hypertension) Cardiac pacemaker in situ Stroke Chronic atrial fibrillation Surgical History Hx of cardiac pacemaker Family History Father Diabetes Mother Diabetes Social History Patient Tobacco Use Status: Former Tobacco user Office Procedures Cardiac Device Check Cardiac Device Check Details: Remote pacemaker report generated 05/20/2025. Pacemaker function is adequate. Patient ventricularly pacer dependent [id number] Cardiac Device Interrogation, pacemaker Procedure code (CPT) selection complete Assessment & Plan Assessment & Plan (1) Cardiac pacemaker in situ: Comment: Medtronic single-chamber pacemaker for bradycardia and possible syncope, 4 years ago Code(s): Z95.0 - Presence of cardiac pacemaker Category: Medical Plan: See above Coding Level of Care Code Procedure Only Diagnoses Cardiac pacemaker in situ Z95.0 CPT Codes Cardiac Device Check - Cardiac Device 12: [id number] Cardiac Device Interrogation, pacemaker ([id number])
== END ==
PROVIDERS: PCP Family Medicine; Visit Provider Internal Medicine Cardiovascular Disease
DX: R00.1 Bradycardia, unspecified (principal); R55 Syncope and collapse; Z95.0 Presence of cardiac pacemaker
CPT/HCPCS: 93294

== ENCOUNTER 2025-06-30 10:42 | Outpatient (AMB) | payer MEDICARE, SELFPAY ==
[2025-06-30 10:48] VITALS: BP 118/66; PULSE 71; O2SAT 98; BMI 20.2
--- NOTE | 2025-06-30 10:48 | A.OFFVIS_ITS ---
Vital Signs 06/30/25 10:48 Height 5 ft 5 in Weight 121 lb 4.068 oz BMI 20.2 BP 118/66 Blood Pressure Location Lt brachial Position Sitting Pulse 71 Pulse Oximetry (%) 98 Intake Visit Reasons: 6m follow up w pacer ck Intake Note: 6 month follow-up Medtronic check feeling good It Associate Required: No Family Day Care Worker: Family Day Care Worker Present Allergies olmesartan (From Benicar) Allergy (Severe, Verified 06/24/24 09:58) Vomiting Medication List - Last Reconciled 06/30/25 by Sundeep Girard MD amlodipine 5 mg PO DAILY apixaban (Eliquis) 2.5 mg PO BID atorvastatin 20 mg PO BEDTIME doxazosin 1 mg PO DAILY metformin 500 mg PO BID HPI Comments Details: Rosa comes for follow-up with her daughter. Overall he has been doing well although has been reducing walking outside due to fear of risk of fall. Patient does have balance issues. However walks inside the house. No actual falls. No worsening shortness of breath, orthopnea, PND. No prolonged palpitation irregular heartbeat. No bleeding issues or neurologic events. No exertional chest pain. Takes all his medications. [facility] Medical History HTN (hypertension) Cardiac pacemaker in situ Stroke Chronic atrial fibrillation Surgical History Hx of cardiac pacemaker Family History Father Diabetes Mother Diabetes Social History Patient Tobacco Use Status: Former Tobacco user Review of Systems Const Denies chills, Denies fatigue, Denies fever(s), Denies weakness, Denies weight gain and Denies weight loss ENT Denies dizziness Card Denies chest pain, Denies leg edema, Denies lightheadedness, Denies palpitations, Denies dyspnea, Denies dyspnea on exertion, Denies orthopnea and Denies other (loss of consciousness) Resp Denies cough, Denies dyspnea and Denies dyspnea on exertion GI Denies hematochezia and Denies change in stool character Musc Denies abnormal gait, Denies muscle weakness, Denies numbness, Denies radiating pain into limb and Denies tingling Neuro Denies abnormal gait, Denies dizziness, Reports lack of coordination, Denies numbness, Denies tingling and Denies weakness Endo Denies fatigue and Denies palpitations Physical Exam Vital Signs: Last Vital Signs Pulse 71 06/30/25 10:48 BP 118/66 06/30/25 10:48 Pulse Ox 98 06/30/25 10:48 BMI result Body Mass Index 20.2 Office Procedures Cardiac Device Check Cardiac Device Check Details: Medtronic pacemaker in place programmed in VVIR at 80 beats per minute. Ventricular pacing 100% of the time. Battery life is excellent at 8.8%. Ventricular pacing thresholds adequate but reprogrammed to enhance safety. Pacing lead impedance is stable. [id number] Cardiac Device Check, pacemaker dual lead Procedure code (CPT) selection complete Assessment & Plan Assessment & Plan (1) Chronic atrial fibrillation: Code(s): I48.20 - Chronic atrial fibrillation, unspecified Category: Medical Plan: Chronic rate control atrial fibrillation, clinically doing well overall. Discussed to continue rate control approach currently pacer dependent. Continue full oral anticoagulation, currently on Eliquis 2.5 mg b.i.d.. Fall risk due to lack of balance will refer to physical therapy for fall prevention exercises. (2) Cardiac pacemaker in situ: Comment: Medtronic single-chamber pacemaker for bradycardia and possible syncope, 4 years ago Code(s): Z95.0 - Presence of cardiac pacemaker Category: Medical Plan: Cardiac pacemaker in-situ, working well. Reprogrammed for adequate function. Will follow remotely. Follow up in the clinic in 6 months time. (3) HTN (hypertension): Code(s): I10 - Essential (primary) hypertension Category: Medical Plan: Hypertension which is currently well optimized advised to monitor blood pressure at home maintain a log. Goal blood pressure less than 130/84. Low-salt diet was discussed. Continue current therapy. Will follow up in the clinic in 6 months time, sooner p.r.n.. Thank you for allowing me to partake in his care Orders: Orders Basic Metabolic Panel Today I48.20 - Chronic atrial fibrillation, unspecified Complete Blood Count no Diff Today I48.20 - Chronic atrial fibrillation, unspecified Referrals Physical Medicine and Rehabilitation Referral Z91.81 - History of falling Coding Level of Care Code Est Pt Level 4 (07512) Complex EM visit Add On G2211 Diagnoses Chronic atrial fibrillation I48.20 Cardiac pacemaker in situ Z95.0 HTN (hypertension) I10 CPT Codes Cardiac Device Check - Cardiac Device 2: [id number] Cardiac Device Check, pacemaker dual lead ([id number])
--- OUTSIDE RECORDS SUMMARY | 2025-06-30 11:24 | XMS_ITS ---
Author Name [facility] Organization Unknown Encounters Encounter Type Encounter Reason Primary Diagnosis Location Date Ambulatory [facility] 08/10/2023 Ambulatory REMOTE CHK PM [facility] 08/10/2023 Ambulatory [facility] 05/07/2023 Ambulatory REMOTE CHK PM [facility] 05/07/2023 Ambulatory [facility] 01/29/2023 Ambulatory REMOTE CHK PM [facility] 01/29/2023 Ambulatory [facility] 11/01/2022 Ambulatory SITECHECK PM MEDT-FU OV RESTON [facility] 11/01/2022 Ambulatory OUTPT [facility] 10/20 [facility] 10/20/2022 Ambulatory [facility] 10/18/2022 Ambulatory CONSULT- AFIB [facility] 10/18/2022 Care Team Organization Name Specialty Phone Email Start Date End Da te [facility] 10/18/2022 11/01/2022 [facility] 10/18
== END 2025-06-30 11:50 | disposition home or self-care (01) ==
PROVIDERS: PCP Family Medicine; Visit Provider Internal Medicine Cardiovascular Disease
DX: I48.20 Chronic atrial fibrillation, unspecified (principal); Z95.0 Presence of cardiac pacemaker; I10 Essential (primary) hypertension
CPT/HCPCS: 93280; 99214; G2211

== ENCOUNTER 2025-06-30 10:42 | Outpatient (REF) | payer MEDICARE, SELFPAY ==
[2025-06-30 11:38] LABS: Hematocrit 44.3 % (42.0-52.0); Hemoglobin 15.0 g/dl (14.0-18.0); Mean Corpuscular HGB Conc 33.9 g/dl (31.0-36.0); Mean Corpuscular Hemoglobin 32.2 pg (27.0-33.0); Mean Corpuscular Volume 95.1 fL (80.0-98.0); NRBC Abs Auto 0.000 X10*3/uL (0.0-0.012); NRBC Pct Auto 0.0 /100WBC (0.0-0.2); Platelet Count 218 X10*3/uL (160-400); Red Blood Count 4.66 X10*6/uL (4.60-5.80); White Blood Count 5.9 X10*3/uL (4.8-10.8)
[2025-06-30 12:21] LABS: Anion Gap 11 (12-20); Blood Urea Nitrogen 21 mg/dL (9-16); Calcium 9.2 mg/dL (8.4-10.2); Carbon Dioxide 26 mmol/L (22-29); Chloride 108 mmol/L (96-108); Estimated Glomerular Filt Rate > 60; Potassium 4.2 mmol/L (3.3-5.1); Sodium 141 mmol/L (135-145)
== END 2025-06-30 10:43 | disposition home or self-care (01) ==
LOC: HO.LAB 10:42
PROVIDERS: PCP Family Medicine; Visit Provider Internal Medicine Cardiovascular Disease
DX: I48.20 Chronic atrial fibrillation, unspecified (principal); I10 Essential (primary) hypertension; Z95.0 Presence of cardiac pacemaker; Z91.81 History of falling; Z79.01 Long term (current) use of anticoagulants; Z79.899 Other long term (current) drug therapy; Z87.891 Personal history of nicotine dependence
CPT/HCPCS: 36415; 80048; 85027; 93280; 99212

== ENCOUNTER → 2025-08-18 23:59 | Outpatient (BNV) | payer MEDICARE, SELFPAY ==
--- NOTE | 2025-08-31 09:21 | MHC.OFFVIS ---
Intake Visit Reasons: Remote device check- Medtronic Allergies olmesartan (From Benicar) Allergy (Severe, Verified 06/24/24 09:58) Vomiting PFSH Medical History HTN (hypertension) Cardiac pacemaker in situ Stroke Chronic atrial fibrillation Surgical History Hx of cardiac pacemaker Family History Father Diabetes Mother Diabetes Social History Patient Tobacco Use Status: Former Tobacco user Office Procedures Cardiac Device Check Cardiac Device Check Details: Remote pacemaker report generated 08/18/2025. Pacemaker function is adequate [id number] Cardiac Device Interrogation, pacemaker Procedure code (CPT) selection complete Assessment & Plan Assessment & Plan (1) Cardiac pacemaker in situ: Comment: Medtronic single-chamber pacemaker for bradycardia and possible syncope, 4 years ago Code(s): Z95.0 - Presence of cardiac pacemaker Category: Medical Plan: See above Coding Level of Care Code Procedure Only Diagnoses Cardiac pacemaker in situ Z95.0 CPT Codes Cardiac Device Check - Cardiac Device 12: [id number] Cardiac Device Interrogation, pacemaker ([id number])
== END ==
PROVIDERS: PCP Family Medicine; Visit Provider Internal Medicine Cardiovascular Disease
DX: R00.1 Bradycardia, unspecified (principal); Z95.0 Presence of cardiac pacemaker
CPT/HCPCS: 93294